=== PATIENT | female | born 1985 | race Caucasian/White ===

== ENCOUNTER 2016-12-25 05:08 | Inpatient (IN) | payer BC ==
[2016-12-22 10:50] LABS: ABSOLUTE EOSINOPHILS # (AUTO) 0.1 10^3/uL (0.0-0.6); ABSOLUTE LYMPHOCYTES (AUTO) 1.4 10^3/uL (0.5-4.7); ABSOLUTE MONOCYTES (AUTO) 0.3 10^3/uL (0.1-1.4); ABSOLUTE NEUT (AUTO) 5.6 10^3/uL (1.7-8.2); BASOPHILS % (AUTO) 0.4 % (0-2); EOSINOPHILS % (AUTO) 0.9 % (0-6); HEMATOCRIT 34.3 % (36.0-47.0); HEMOGLOBIN 11.7 g/dL (12.0-15.5); HGB HCT DIFFERENCE 0.8; MEAN CORPUSCULAR HEMOGLOBIN 28.4 pg (27.0-33.4); MEAN CORPUSCULAR HGB CONC 34.2 g/dL (32.0-36.0); MEAN CORPUSCULAR VOLUME 83 fl (80-97); MONOCYTES % (AUTO) 4.7 % (3-13); RED BLOOD COUNT 4.14 10^6/uL (3.72-5.28); WHITE BLOOD COUNT 7.5 10^3/uL (4.0-10.5)
[2016-12-22 10:59] LABS: APPEARANCE,URINE SLIGHTLY-CLOUDY; BILIRUBIN,URINE NEGATIVE (NEGATIVE); GLUCOSE, URINE 150 mg/dL (NEGATIVE); KETONES,URINE NEGATIVE (NEGATIVE); LEUKOCYTE ESTERASE,URINE TRACE (NEGATIVE); NITRITE,URINE NEGATIVE (NEGATIVE); PROTEIN,URINE 30 mg/dL (NEGATIVE); URINE SPECIFIC GRAVITY 1.018; UROBILINOGEN,URINE NEGATIVE mg/dL (<2.0)
[2016-12-22 11:25] LABS: URINE BARBITURATES SCREEN NEGATIVE; URINE METHADONE SCREEN NEGATIVE; URINE OPIATES LOW NEGATIVE; URINE PHENCYCLIDINE SCREEN NEGATIVE
[2016-12-25] MEDS ORDERED: INFLUENZA ADLT QUAD (36MOS+) 2017-18 VAC 0.5 ML SYR IM PRN (05:41)
[2016-12-25] MEDS ORDERED: CEFAZOLIN 2 GM/D5W RTU 2 GM/50 ML RTUPB IV PRN (06:55)
[2016-12-25] MEDS ORDERED: RINGERS SOLUTION,LACTATED 1,000 ML IV PRN (06:57)
[2016-12-25] MEDS ORDERED: PROPOFOL INJ 200 MG/20 ML VIAL IV ONE (07:16)
[2016-12-25] MEDS ORDERED: EPHEDRINE SULFATE INJ 50 MG/1 ML AMPULE ONE (07:17)
[2016-12-25] MEDS ORDERED: FENTANYL CITRATE INJ/PF 100 MCG/2 ML AMPUL ONE (07:17)
[2016-12-25] MEDS ORDERED: KETAMINE HCL INJ 500 MG/10 ML VIAL ONE (07:17)
[2016-12-25] MEDS ORDERED: MIDAZOLAM 2 MG/2 ML INJ ONE (07:18)
[2016-12-25] MEDS ORDERED: OXYTOCIN 10 UNIT/ML VIAL ONE (07:18)
[2016-12-25] MEDS ORDERED: ACETAMINOPHEN 100 ML IV ONE (07:24)
[2016-12-25] MEDS ORDERED: FENTANYL CITRATE INJ/PF 100 MCG/2 ML AMPUL IV PRN ×3 (08:23)
[2016-12-25] MEDS ORDERED: MORPHINE SULFATE 10 MG/ML INJ IV PRN (08:23)
[2016-12-25] MEDS ORDERED: OXYTOCIN/NORMAL SALINE 20 UNIT/1,000 ML RTUINJ INJ PRN (09:02)
[2016-12-25] MEDS: DIPHENHYDRAMINE HCL 50 MG/ML VIAL IV PRN ×2 (09:05→10:24)
[2016-12-25] MEDS ORDERED: OXYTOCIN/NORMAL SALINE 20 UNIT/1,000 ML RTUINJ ONE (09:07)
[2016-12-25] MEDS ORDERED: DIPHENHYDRAMINE HCL 50 MG/ML VIAL ONE (09:08)
[2016-12-25] MEDS ORDERED: DIPH/PERTUSS(ACELL)/TETANUS VAC/PF 0.5 ML SYR (>=10YO) IM PRN (09:30)
[2016-12-25] MEDS ORDERED: OXYCODONE-ACETAMINOPHEN 5-325 MG TABLET PO PRN ×2 (09:30)
[2016-12-25] MEDS ORDERED: PROMETHAZINE HCL INJ 25 MG/1 ML VIAL IM PRN (09:30)
[2016-12-25] MEDS ORDERED: RINGERS SOLUTION,LACTATED 1,000 ML IV SCH (09:30)
[2016-12-25] MEDS ORDERED: MEASLES,MUMPS&RUBELLA VACC/PF 0.5 ML VIAL SUBCUT PRN (09:30)
[2016-12-25] MEDS ORDERED: SIMETHICONE 80 MG TAB.CHEW PO PRN (09:30)
[2016-12-25] MEDS ORDERED: ACETAMINOPHEN 325 MG TABLET PO PRN (09:30)
[2016-12-25] MEDS: KETOROLAC TROMETHAMINE INJ/PF 30 MG/1 ML SDV IV SCH ×2 (09:33→18:27)
[2016-12-25] MEDS ORDERED: KETOROLAC TROMETHAMINE INJ/PF 30 MG/1 ML SDV ONE (09:36)
--- NOTE | 2016-12-25 10:48 | OPERATIVE REPORT E ---
Operative Report NAME: CHRIST GUZMAN : 1985 AGE: 31Y DATE OF SURGERY: 12/25/2016 ROOM: 222 PREOPERATIVE DIAGNOSES: 1. A 39-week intrauterine . 2. History of section x2 for repeat. 3. Patient desiring permanent sterilization. POSTOPERATIVE DIAGNOSES: 1. A 39-week intrauterine . 2. History of section x2 for repeat. 3. Patient desiring permanent sterilization. SURGEON: Earl Bhatia D.O. CHEERLEADING COACH: None. PROCEDURES: 1. Repeat low transverse section. 2. Bilateral tubal ligation using Filshie clips. ANESTHESIA: Spinal. COMPLICATIONS: None. ESTIMATED BLOOD LOSS: 600 mL. PATHOLOGY: Placenta. FINDINGS: 1. Viable male infant at 8:06 a.m. on 12/25/2016. Apgars 8 at one, 9 at five. Weight 8 pounds 10 ounces. 2. Normal-appearing bilateral fallopian tubes and ovaries. DESCRIPTION OF PROCEDURE: The patient was taken to the operating room where spinal anesthesia was administered. Once this was done, she was placed in the dorsal supine position with a leftward tilt upon the operating room table. She was then prepped and draped in normal sterile fashion. A scalpel was then used to make a Pfannenstiel skin incision. The skin incision was carried down through subcutaneous tissue to the layer of the fascia. Fascia was then incised midline. Fascial incision was then extended bilaterally using the Bovie cautery. The superior fascial edge was grasped with Samantha clamps, elevated, and the rectus muscle was dissected off sharply and bluntly. Attention was then turned to the inferior fascial edge, which was grasped with Samantha clamps, elevated, and the rectus muscle was dissected off sharply and bluntly. Rectus muscles were then in the midline, peritoneum identified and entered bluntly with the surgeon's hands. Bladder blade was then inserted. A scalpel was then used to make a low transverse hysterotomy incision. The infant was found to be in cephalic position and delivered through the incision without difficulty and atraumatically. The nose and mouth were suctioned. The cord was clamped and cut. The infant was handed off to the awaiting nurses. Cord blood was obtained. The placenta was then manually removed from the uterus. The uterus was exteriorized and cleared of all clots and debris. The hysterotomy incision was then reapproximated using 2 layers of 1-0 Vicryl in a running, locking fashion. Following closure of the second layer, excellent hemostasis was noted. The uterus was then returned to the abdomen. Again, hysterotomy incision was reinspected and found to have excellent hemostasis. The rectus muscles were then reapproximated using 1-0 Vicryl interrupted sutures. The fascia was then closed using 1-0 Vicryl in a running, non-locking fashion. The subcutaneous space was made hemostatic using Bovie cautery. The subcutaneous space was closed using 3-0 plain gut. The skin was then closed with absorbable tacho, covered with an OpSite and then with a pressure dressing. Following closure of the hysterotomy incision, a Filshie clip was then placed on the mid portion of each fallopian tube without difficulty. At this point in time, the procedure was terminated. All sponge, lap, and needle counts were correct x2. Patient tolerated the procedure well. Patient was taken to the recovery room in stable condition. DICTATING PHYSICIAN: Earl Bhatia DO [id number] PHY#: [id number] ID: [id number] JOB#: [id number] ACCT: [id number] cc:Earl Bhatia D.O. >
[2016-12-25] MEDS: HYDROMORPHONE HCL INJ/PF 2 MG/ML AMPULE IV PRN ×3 (11:32→18:26)
[2016-12-25] MEDS: PRENATAL VITAMIN W-O CA NO5/FE FUMARATE/FA CAPSULE PO SCH (12:01)
[2016-12-25] MEDS: DOCUSATE SODIUM 100 MG CAPSULE PO SCH ×2 (12:01→18:32)
[2016-12-25] MEDS ORDERED: ONDANSETRON HCL INJ/PF 4 MG/2 ML SDV ONE ×2 (13:23→13:24)
[2016-12-25] MEDS ORDERED: ACETAMINOPHEN WITH CODEINE #3 TABLET PO PRN (20:42)
[2016-12-25] MEDS: ACETAMINOPHEN WITH CODEINE #3 TABLET PO PRN (20:50)
[2016-12-26] MEDS: ACETAMINOPHEN WITH CODEINE #3 TABLET PO PRN ×4 (00:59→18:40)
[2016-12-26] MEDS: KETOROLAC TROMETHAMINE INJ/PF 30 MG/1 ML SDV IV SCH (01:00)
[2016-12-26 06:09] LABS: HEMATOCRIT 29.7 % (36.0-47.0); HEMOGLOBIN 10.3 g/dL (12.0-15.5); HGB HCT DIFFERENCE 1.2; MEAN CORPUSCULAR HEMOGLOBIN 28.7 pg (27.0-33.4); MEAN CORPUSCULAR HGB CONC 34.5 g/dL (32.0-36.0); MEAN CORPUSCULAR VOLUME 83 fl (80-97); RED BLOOD COUNT 3.57 10^6/uL (3.72-5.28); RED CELL DISTRIBUTION WIDTH 15.1 % (11.5-14.0); WHITE BLOOD COUNT 7.7 10^3/uL (4.0-10.5)
[2016-12-26] MEDS: DOCUSATE SODIUM 100 MG CAPSULE PO SCH ×2 (10:07→17:19)
[2016-12-26] MEDS: PRENATAL VITAMIN W-O CA NO5/FE FUMARATE/FA CAPSULE PO SCH (10:07)
[2016-12-26] MEDS: IBUPROFEN 800 MG TABLET PO SCH ×3 (12:11→23:25)
[2016-12-26] MEDS ORDERED: PHENAZOPYRIDINE HCL 200 MG TABLET PO ONE (22:00)
[2016-12-26 22:02] LABS: APPEARANCE,URINE CLOUDY; BILIRUBIN,URINE NEGATIVE (NEGATIVE); GLUCOSE, URINE NEGATIVE (NEGATIVE); KETONES,URINE NEGATIVE (NEGATIVE); LEUKOCYTE ESTERASE,URINE NEGATIVE (NEGATIVE); NITRITE,URINE NEGATIVE (NEGATIVE); PROTEIN,URINE 30 mg/dL (NEGATIVE); URINE SPECIFIC GRAVITY 1.019; UROBILINOGEN,URINE NEGATIVE mg/dL (<2.0)
[2016-12-27] MEDS: ACETAMINOPHEN WITH CODEINE #3 TABLET PO PRN ×2 (01:54→14:46)
[2016-12-27] MEDS: IBUPROFEN 800 MG TABLET PO SCH ×4 (05:43→23:57)
--- NOTE | 2016-12-27 08:52 | PDOC PROGRESS REPORT ---
Subjective-OB Subjective: Post Delivery Day: 2 31 year old. Denies any needs at this time, states lochia is stable, pain well controlled, voiding without difficulty. Pt is ready to go home, but would like to stay if baby is not able to be discharged as she is breast feeding. Physical Exam (OB) Vital Signs: Temp Pulse Resp BP Pulse Ox 97.9 F 94 18 125/66 97 12/27/16 04:25 12/27/16 04:25 12/27/16 04:25 12/27/16 04:25 12/27/16 04:25 Intake & Output 12/26/16 12/27/16 12/28/16 06:59 06:59 06:59 Intake Total 500 325 Output Total 1900 Balance -1400 325 - PIH/Pre-Eclampsia DTR's: 2 + Clonus: Negative Headache: Absent Epigastric Pain: No Visual Changes: No - Dressing Removed: Yes Incision: Dressing, Well Approximated Closure Type: Sutures - Bilateral Tubal Ligation Dressing Removed: No - Lochia Lochia Amount: Scant < 10 ml Lochia Color: Rubra/Red - Abdomen Description: Tender, Soft Hernia Present: No Fundal Description: Firm, Midline Fundal Height: u/u - u/2 Objective-Diagnostic Laboratory: 12/26/16 05:50 12/26/16 21:32 Urine Color YELLOW Urine Appearance CLOUDY Urine pH 5.0 Ur Specific [place] 1.019 Urine Protein 30 H Urine Glucose (UA) NEGATIVE Urine Ketones NEGATIVE Urine Blood LARGE H Urine Nitrite NEGATIVE Ur Leukocyte Esterase NEGATIVE Urine RBC (Auto) >182 Assessment and Plan(PN) - Assessment and Plan (1) Acute blood loss anemia Is this a current diagnosis for this admission?: Yes Plan: ferrous sulfate increase dietary iron (2) Delivery by elective caesarean section Is this a current diagnosis for this admission?: Yes Plan: may cancel discharge if baby isn't discharged - Time Spent with Patient Time with patient: Less than 15 minutes Critical Time spent with patient: Less than 15 minutes Medications reviewed and adjusted accordingly: Yes - Disposition Anticipated Discharge: Home Within: within 24 hours
--- NOTE | 2016-12-27 08:53 | PDOC DISCHARGE SUMMARY ---
Final Diagnosis Discharge Date: 12/27/16 - Final Diagnosis (1) Acute blood loss anemia Is this a current diagnosis for this admission?: Yes (2) Delivery by elective caesarean section Is this a current diagnosis for this admission?: Yes Discharge Data - Discharge Medication Home Medications: Vit #76/Iron,Carb/FA [Pnv 29-1 Tablet] 1 tab PO DAILY 09/16/14 Ferrous Sulfate 140 mg PO DAILY 12/22/16 Ranitidine HCl [Zantac 150 mg Tablet] 150 mg PO PRN PRN 12/22/16 Docusate Sodium [Colace 100 mg Capsule] 100 mg PO BID #60 capsule 12/27/16 Ibuprofen [Motrin 800 mg Tablet] 800 mg PO Q6 #60 tablet 12/27/16 Oxycodone HCl/Acetaminophen [Percocet 5-325 mg Tablet] 1 tab PO Q4HP PRN #30 tablet 12/27/16 Gestational Age: 39 Reason(s) for Admission: Ceasarean Section-Repeat, Tubal Ligation Procedures: NST Intrapartum Procedure(s): : Low Cervical, Transverse, Tubal Ligation - Data Baby 1 Male at 1 minute: 8 at 5 minutes: 9 Weight: 3.912 kg Home with Mother: Yes Complications: Yes - jaundice - Diagnosis Test Laboratory: Temp Pulse Resp BP Pulse Ox 97.9 F 94 18 125/66 97 12/27/16 04:25 12/27/16 04:25 12/27/16 04:25 12/27/16 04:25 12/27/16 04:25 12/22/16 12/22/16 12/26/16 09:41 09:50 05:50 RBC 4.14 3.57 L Hgb 11.7 L 10.3 L Hct 34.3 L 29.7 L Urine Opiates Screen NEGATIVE - Discharge information/Instructions Discharge Activity: Activity As Tolerated, No Driving, No Lifting Over 10 Pounds , Pelvic Rest, No tub bath Discharge Diet: Regular Disposition: HOME, SELF-CARE Follow up with: [facility] in: 1, Weeks
[2016-12-27] MEDS: PRENATAL VITAMIN W-O CA NO5/FE FUMARATE/FA CAPSULE PO SCH (10:12)
[2016-12-27] MEDS: DOCUSATE SODIUM 100 MG CAPSULE PO SCH ×2 (10:12→17:57)
[2016-12-27] MEDS ORDERED: PHENAZOPYRIDINE HCL 200 MG TABLET PO ONE (15:30)
[2016-12-28] MEDS: ACETAMINOPHEN WITH CODEINE #3 TABLET PO PRN (00:01)
[2016-12-28] MEDS: IBUPROFEN 800 MG TABLET PO SCH ×2 (05:42→13:45)
[2016-12-28] MEDS: DOCUSATE SODIUM 100 MG CAPSULE PO SCH (09:40)
[2016-12-28] MEDS: PRENATAL VITAMIN W-O CA NO5/FE FUMARATE/FA CAPSULE PO SCH (09:40)
[2016-12-28 12:59] VITALS: BP 136/71
--- NOTE | 2016-12-28 13:03 | PDOC DISCHARGE SUMMARY ---
Final Diagnosis Discharge Date: 12/28/16 - Final Diagnosis (1) Acute blood loss anemia Is this a current diagnosis for this admission?: Yes (2) Delivery by elective caesarean section Is this a current diagnosis for this admission?: Yes Discharge Data - Discharge Medication Home Medications: Vit #76/Iron,Carb/FA [Pnv 29-1 Tablet] 1 tab PO DAILY 09/16/14 Ferrous Sulfate 140 mg PO DAILY 12/22/16 Ranitidine HCl [Zantac 150 mg Tablet] 150 mg PO PRN PRN 12/22/16 Docusate Sodium [Colace 100 mg Capsule] 100 mg PO BID #60 capsule 12/27/16 Ibuprofen [Motrin 800 mg Tablet] 800 mg PO Q6 #60 tablet 12/27/16 Oxycodone HCl/Acetaminophen [Percocet 5-325 mg Tablet] 1 tab PO Q4HP PRN #30 tablet 12/27/16 Reason(s) for Admission: Ceasarean Section-Repeat Procedures: None Intrapartum Procedure(s): : Low Cervical, Transverse - Diagnosis Test Laboratory: Temp Pulse Resp BP Pulse Ox 97.7 F 86 18 136/71 H 100 12/28/16 12:50 12/28/16 12:50 12/28/16 12:50 12/28/16 12:50 12/28/16 12:50 12/22/16 12/22/16 12/26/16 09:41 09:50 05:50 RBC 4.14 3.57 L Hgb 11.7 L 10.3 L Hct 34.3 L 29.7 L Urine Opiates Screen NEGATIVE - Discharge information/Instructions Discharge Activity: Activity As Tolerated, No Driving, No Lifting Over 10 Pounds , Pelvic Rest, No tub bath Discharge Diet: Regular Disposition: HOME, SELF-CARE Follow up with: [facility] in: 1, Weeks
== END 2016-12-28 16:42 | disposition home or self-care (01) | DRG 765 ==
LOC: 2S 05:08
PROVIDERS: ADMIT Obstetrics & Gynecology; ATTEND Obstetrics & Gynecology
PROC: 0UL70CZ Occlusion of Bilateral Fallopian Tubes with Extraluminal Device, Open Approach (ICD-10-PCS; 2016-12-25)
PROC: 10D00Z1 Extraction of Products of Conception, Low, Open Approach (ICD-10-PCS; principal; 2016-12-25 07:45)
PROC: 3E0234Z Introduction of Serum, Toxoid and Vaccine into Muscle, Percutaneous Approach (ICD-10-PCS; 2016-12-28)
DX: O34.211 Maternal care for low transverse scar from previous cesarean delivery (principal); Z68.42 Body mass index [BMI] 45.0-49.9, adult; D62 Acute posthemorrhagic anemia; Z37.0 Single live birth; O99.02 Anemia complicating childbirth; N85.8 Other specified noninflammatory disorders of uterus; O99.214 Obesity complicating childbirth; E66.9 Obesity, unspecified; Z3A.39 39 weeks gestation of pregnancy; Z23 Encounter for immunization
CPT/HCPCS: 1961; 36415; 59025; 80307; 81001; 85025; 85027; 86850; 86900; 86901; 90686; 94799; J0131; J1170; J1200; J1885; J2250; J2405; J2590; J2704; J3010; J3490; J7120

== ENCOUNTER 2017-07-02 15:19 | Emergency (ER) | payer BC ==
[2017-07-02 16:36] LABS: ABSOLUTE EOSINOPHILS # (AUTO) 0.1 10^3/uL (0.0-0.6); ABSOLUTE LYMPHOCYTES (AUTO) 2.1 10^3/uL (0.5-4.7); ABSOLUTE MONOCYTES (AUTO) 0.4 10^3/uL (0.1-1.4); ABSOLUTE NEUT (AUTO) 4.3 10^3/uL (1.7-8.2); BASOPHILS % (AUTO) 0.6 % (0-2); EOSINOPHILS % (AUTO) 1.8 % (0-6); HEMATOCRIT 42.7 % (36.0-47.0); MEAN CORPUSCULAR HEMOGLOBIN 27.7 pg (27.0-33.4); MEAN CORPUSCULAR HGB CONC 32.9 g/dL (32.0-36.0); MEAN CORPUSCULAR VOLUME 84 fl (80-97); MONOCYTES % (AUTO) 5.6 % (3-13); PLATELET COUNT 349 10^3/uL (150-450); RED BLOOD COUNT 5.07 10^6/uL (3.72-5.28); TOTAL CELLS COUNTED % (AUTO) 100 %
[2017-07-02 16:48] LABS: ANION GAP 11 (5-19); BLOOD UREA NITROGEN 9 mg/dL (7-20); CALCIUM 9.5 mg/dL (8.4-10.2); CARBON DIOXIDE 30 mmol/L (22-30); CHLORIDE 103 mmol/L (98-107); GLUCOSE 89 mg/dL (75-110); POTASSIUM 3.9 mmol/L (3.6-5.0); SODIUM 143.5 mmol/L (137-145)
[2017-07-02 16:50] LABS: APPEARANCE,URINE CLEAR; BILIRUBIN,URINE NEGATIVE (NEGATIVE); COLOR,URINE STRAW; GLUCOSE, URINE NEGATIVE (NEGATIVE); KETONES,URINE NEGATIVE (NEGATIVE); LEUKOCYTE ESTERASE,URINE NEGATIVE (NEGATIVE); NITRITE,URINE NEGATIVE (NEGATIVE); PROTEIN,URINE NEGATIVE (NEGATIVE); URINE SPECIFIC GRAVITY 1.006; UROBILINOGEN,URINE NEGATIVE mg/dL (<2.0)
--- NOTE | 2017-07-02 17:16 | ER Document Report ---
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 She states she felt her heart racing and sat down. She states that the nurse at the estate planning attorney's office put on a pulse ox 100 208. She was then referred to the emergency department. Here she states she feels fine but was having palpitations earlier. She has no previous history of SVT or cardiac problems. No family history. She states she has been taking pseudoephedrine and did drink caffeine this morning. She denies any current symptoms. The palpitations were intermittent. Nothing appear to make them better or worse. There is no radiation of the nose. They are mild to moderate. TRAVEL OUTSIDE OF THE [place] IN LAST 30 DAYS: No - Related Data Allergies/Adverse Reactions: No Known Allergies Allergy (Verified 12/22/16 10:02) Past Medical History - General Information source: Patient - Social History Smoking Status: Never Smoker Chew tobacco use (# tins/day): No Frequency of alcohol use: None Drug Abuse: None Lives with: Family Family History: Reviewed & Not Pertinent Patient has suicidal ideation: No Patient has homicidal ideation: No Neurological Medical History: Denies: Hx Cerebrovascular Accident, Hx Seizures Renal/ Medical History: Denies: Hx Kidney Stones, Hx Peritoneal Dialysis GI Medical History: Reports: Hx Gastroesophageal Reflux Disease - TAKES ZANTAC / TUMS. Denies: Hx Hiatal Hernia, Hx Ulcer Infectious Medical History: Denies: Hx HIV - Immunizations Hx Diphtheria, Pertussis, Tetanus Vaccination: Yes Review of Systems - Review of Systems Constitutional: denies: Chills, Fever Cardiovascular: Palpitations. denies: Chest pain Respiratory: denies: Cough, Short of breath -: Yes All other systems reviewed and negative Physical Exam - Vital signs Vitals: Temp Pulse Resp BP Pulse Ox 97.7 F 95 18 139/94 H 99 07/02/17 15:41 07/02/17 15:41 07/02/17 15:41 07/02/17 15:41 07/02/17 15:41 Interpretation: Hypertensive - General General appearance: Appears well, Alert - HEENT Head: Normocephalic, Atraumatic Eyes: Normal Pupils: PERRL - Respiratory Respiratory status: No respiratory distress Chest status: Nontender Breath sounds: Normal Chest palpation: Normal - Cardiovascular Rhythm: Regular Heart sounds: Normal auscultation Murmur: No - Abdominal Inspection: Normal Distension: No distension Bowel sounds: Normal Tenderness: Nontender Organomegaly: No organomegaly - Back Back: Normal, Nontender - Extremities General upper extremity: Normal inspection, Nontender, Normal color, Normal ROM , Normal temperature General lower extremity: Normal inspection, Nontender, Normal color, Normal ROM , Normal temperature, Normal weight bearing. No: Alfred's sign - Neurological Neuro grossly intact: Yes Cognition: Normal Orientation: AAOx4 Jessica Coma Scale Eye Opening: Spontaneous [place] Coma Scale Verbal: Oriented [place] Coma Scale Motor: Obeys Commands Jessica Coma Scale Total: 15 Speech: Normal Motor strength normal: LUE, RUE, LLE, RLE Sensory: Normal - Psychological Associated symptoms: Normal affect, Normal mood - Skin Skin Temperature: Warm Skin Moisture: Dry Skin Color: Normal Course - Vital Signs Vital signs: Temp Pulse Resp BP Pulse Ox 97.7 F 95 18 139/94 H 99 07/02/17 15:41 07/02/17 15:41 07/02/17 15:41 07/02/17 15:41 07/02/17 15:41 - Laboratory Result Diagrams: 07/02/17 16:13 07/02/17 16:13 - EKG Interpretation by Tn EKG shows normal: Sinus rhythm Rate: Normal Rhythm: NSR [place]/QRS: No: Right axis deviation, Left axis deviation Discharge - Discharge Clinical Impression: Palpitations Condition: Stable Disposition: HOME, SELF-CARE Instructions: Palpitations (Irregular or Rapid Heartrate) ([facility]) Forms: Return to Work Referrals: STONE MONTEMAYOR FNP [Primary Care Provider] - Follow up as needed
[2017-07-02 17:24] VITALS: BP 142/90
--- NOTE | 2017-07-02 19:40 | EKG REPORT ---
SEVERITY:- NORMAL ECG - SINUS RHYTHM : Confirmed by: Gerald Dahl MD 02-Jul-2017 19:39:18
== END 2017-07-02 17:28 | disposition home or self-care (01) ==
LOC: ER 15:19
DX: R00.2 Palpitations (principal)
CPT/HCPCS: 36415; 80048; 81001; 81025; 85025; 93005; 93010; 99285

== ENCOUNTER 2019-12-31 13:36 | Emergency (ER) | payer BC ==
[2019-12-31 14:27] LABS: ABSOLUTE EOSINOPHILS # (AUTO) 0.1 10^3/uL (0.0-0.6); ABSOLUTE LYMPHOCYTES (AUTO) 1.5 10^3/uL (0.5-4.7); ABSOLUTE MONOCYTES (AUTO) 0.3 10^3/uL (0.1-1.4); ABSOLUTE NEUT (AUTO) 4.6 10^3/uL (1.7-8.2); BASOPHILS % (AUTO) 0.5 % (0-2); EOSINOPHILS % (AUTO) 1.7 % (0-6); HEMATOCRIT 37.3 % (36.0-47.0); HEMOGLOBIN 12.6 g/dL (12.0-15.5); LYMPHOCYTES % (AUTO) 22.5 % (13-45); MEAN CORPUSCULAR HGB CONC 33.9 g/dL (32.0-36.0); MEAN CORPUSCULAR VOLUME 83 fl (80-97); PLATELET COUNT 281 10^3/uL (150-450); RED BLOOD COUNT 4.51 10^6/uL (3.72-5.28); RED CELL DISTRIBUTION WIDTH 14.5 % (11.5-14.0); SEGMENTED NEUTROPHILS % (AUTO) 70.3 % (42-78); TOTAL CELLS COUNTED % (AUTO) 100 %; WHITE BLOOD COUNT 6.6 10^3/uL (4.0-10.5)
[2019-12-31 14:33] LABS: ANION GAP 12 (5-19); BLOOD UREA NITROGEN 16 mg/dL (7-20); CALCIUM 9.3 mg/dL (8.4-10.2); CARBON DIOXIDE 20 mmol/L (22-30); CHLORIDE 107 mmol/L (98-107); GLUCOSE 86 mg/dL (75-110); POTASSIUM 4.5 mmol/L (3.6-5.0)
--- NOTE | 2019-12-31 15:16 | EKG REPORT ---
SEVERITY:- OTHERWISE NORMAL ECG - SINUS TACHYCARDIA : Confirmed by: Charlotte Pino MD 31-Dec-2019 15:15:00
--- NOTE | 2019-12-31 15:17 | ER Document Report ---
ED Cardiac - General Chief Complaint: Palpitations Stated Complaint: RAPID HEART RATE Time Seen by Provider: 12/31/19 13:41 Primary Care Provider: STONE MONTEMAYOR FNP [Primary Care Provider] - Follow up as needed Information source: Patient TRAVEL OUTSIDE OF THE [place] IN LAST 30 DAYS: No - HPI Notes: Patient comes in complaint of palpitations. She states she has been taking phentermine for weight loss as well as a Thrive patch. Today while at work she began to have significant palpitations. Medics state that when they arrived her pulse was above 200. Both time she arrives here her pulse is back down around 120. She states she now feels much better. Patient denies any current symptoms. The palpitations were severe when they started. Nothing made them significantly better or worse. They were constant. No significant shortness of breath no previous history of pulmonary embolism. No recent cough cold or congestion. She just recently started phentermine and the weight loss patch approximately 3 to 5 days ago. - Related Data Allergies/Adverse Reactions: No Known Allergies Allergy (Verified 12/31/19 13:38) Past Medical History - General Information source: Patient - Social History Smoking Status: Never Smoker Frequency of alcohol use: None Drug Abuse: None Family History: Reviewed & Not Pertinent Neurological Medical History: Denies: Hx Cerebrovascular Accident, Hx Seizures Renal/ Medical History: Denies: Hx Kidney Stones, Hx Peritoneal Dialysis GI Medical History: Reports: Hx Gastroesophageal Reflux Disease - TAKES ZANTAC / TUMS. Denies: Hx Hiatal Hernia, Hx Ulcer Infectious Medical History: Denies: Hx HIV - Immunizations Hx Diphtheria, Pertussis, Tetanus Vaccination: Yes Review of Systems - Review of Systems Constitutional: denies: Chills, Fever Cardiovascular: Palpitations, Dizziness Respiratory: denies: Cough, Short of breath -: Yes All other systems reviewed and negative Physical Exam - Vital signs Vitals: Temp 98.2 F 12/31/19 13:40 Interpretation: Tachycardic - General General appearance: Appears well, Alert - HEENT Head: Normocephalic, Atraumatic Eyes: Normal Pupils: PERRL - Respiratory Respiratory status: No respiratory distress Chest status: Nontender Breath sounds: Normal Chest palpation: Normal - Cardiovascular Rhythm: Tachycardia Heart sounds: Normal auscultation Murmur: No - Abdominal Inspection: Normal Distension: No distension Bowel sounds: Normal Tenderness: Nontender Organomegaly: No organomegaly - Back Back: Normal, Nontender - Extremities General upper extremity: Normal inspection, Nontender, Normal color, Normal ROM, Normal temperature General lower extremity: Normal inspection, Nontender, Normal color, Normal ROM, Normal temperature, Normal weight bearing. No: Alfred's sign - Neurological Neuro grossly intact: Yes Cognition: Normal Orientation: AAOx4 Jessica Coma Scale Eye Opening: Spontaneous [place] Coma Scale Verbal: Oriented [place] Coma Scale Motor: Obeys Commands [place] Coma Scale Total: 15 Speech: Normal Motor strength normal: LUE, RUE, LLE, RLE Sensory: Normal - Psychological Associated symptoms: Normal affect, Normal mood - Skin Skin Temperature: Warm Skin Moisture: Dry Skin Color: Normal Course - Vital Signs Vital signs: Temp Pulse Resp BP Pulse Ox 98.2 F 21 H 136/91 H 99 12/31/19 13:40 12/31/19 14:01 12/31/19 14:01 12/31/19 14:01 - Laboratory Result Diagrams: 12/31/19 13:45 12/31/19 13:45 Laboratory results interpreted by me: 12/31/19 12/31/19 13:45 13:45 RDW 14.5 H Carbon Dioxide 20 L - EKG Interpretation by Sc EKG shows normal: Sinus rhythm Rate: Tachycardia - 110 Rhythm: NSR [place]/QRS: No: Right axis deviation, Left axis deviation Discharge - Discharge Clinical Impression: Palpitations, Sinus tachycardia by electrocardiogram Phentermine adverse reaction Qualifiers: Encounter type: initial encounter Qualified Code(s): T50.5X5A - Adverse effect of appetite depressants, initial encounter Condition: Stable Disposition: HOME, SELF-CARE Instructions: Palpitations (Irregular or Rapid Heartrate) ([facility]) Additional Instructions: stop phentermine and Thrive patch Forms: Return to Work Referrals: STONE MONTEMAYOR FNP [Primary Care Provider] - Follow up as needed
[2019-12-31 16:05] VITALS: BP 127/86
== END 2019-12-31 16:00 | disposition home or self-care (01) ==
LOC: ER 13:36
DX: R00.2 Palpitations (principal); R00.0 Tachycardia, unspecified; T50.5X5A Adverse effect of appetite depressants, initial encounter; X58.XXXA Exposure to other specified factors, initial encounter
CPT/HCPCS: 36415; 80048; 83735; 85025; 93005; 93010; 99284